=== PATIENT | female | born 1930 | race Caucasian/White ===

== ENCOUNTER → 2016-11-04 | Outpatient (CLI) | payer OTHER ==
[~2016-11-04] MED LIST: CALCIUM PO; DYZ PO; GLC5 PO; GLC500 PO; LISI-725 PO; PANT40TA PO; POTA10CA28 PO; PRED1SUS3 OPR; SIMV10TA2 PO; VIT D PO; ZINC PO
[2016-11-04 13:14] LABS: BLOOD UREA NITROGEN 21 mg/dl (7-18); BUN/CREATININE RATIO 17.7 (10-20); CARBON DIOXIDE 23 mmol/L (21-32); CHLORIDE 103 mmol/L (98-107); CHOLESTEROL 116 mg/dl (0-200); GLUCOSE 104 mg/dl (70-99); POTASSIUM 4.1 mmol/L (3.5-5.1); SODIUM 137 mmol/L (136-145); TRIGLYCERIDES 100 mg/dl (0-150); VERY LOW DENSITY LIPOPROT CALC 20 mg/dl
[2016-11-04 13:18] LABS: CHOLESTEROL/HDL RATIO 2.9; HDL CHOLESTEROL 40 mg/dl
[2016-11-04 13:42] LABS: ESTIMATED AVERAGE GLUCOSE 166 mg/dl; HA1C FLAG Normal (Normal)
== END | disposition home or self-care (01) ==
LOC: C.LABSPEC 12:33
PROVIDERS: ATTEND Internal Medicine
DX: E66.09 Other obesity due to excess calories (principal); E11.65 Type 2 diabetes mellitus with hyperglycemia; E78.5 Hyperlipidemia, unspecified; I10 Essential (primary) hypertension

== ENCOUNTER → 2017-03-02 | Outpatient (CLI) | payer OTHER ==
[2017-03-02 13:38] LABS: ESTIMATED AVERAGE GLUCOSE 160 mg/dl; HA1C FLAG Normal (Normal)
[2017-03-02 13:48] LABS: BLOOD UREA NITROGEN 25 mg/dl (7-18); CARBON DIOXIDE 22 mmol/L (21-32); CHLORIDE 104 mmol/L (98-107); CHOLESTEROL 119 mg/dl (0-200); GLUCOSE 97 mg/dl (70-99); POTASSIUM 4.1 mmol/L (3.5-5.1); SODIUM 138 mmol/L (136-145); TRIGLYCERIDES 84 mg/dl (0-150); VERY LOW DENSITY LIPOPROT CALC 17 mg/dl
[2017-03-02 13:49] LABS: CALCIUM 8.2 mg/dl (8.5-10.1); CHOLESTEROL/HDL RATIO 2.4; HDL CHOLESTEROL 50 mg/dl
== END | disposition home or self-care (01) ==
LOC: C.LABSPEC 12:11
PROVIDERS: ATTEND Internal Medicine
DX: E78.5 Hyperlipidemia, unspecified (principal); I10 Essential (primary) hypertension; E11.65 Type 2 diabetes mellitus with hyperglycemia

== ENCOUNTER → 2017-07-06 | Outpatient (CLI) | payer OTHER ==
[2017-07-06 13:32] LABS: BLOOD UREA NITROGEN 19 mg/dl (7-18); BUN/CREATININE RATIO 16.1 (10-20); CALCIUM 8.1 mg/dl (8.5-10.1); CARBON DIOXIDE 26 mmol/L (21-32); CHLORIDE 102 mmol/L (98-107); CHOLESTEROL 110 mg/dl (0-200); GLUCOSE 83 mg/dl (70-99); POTASSIUM 4.3 mmol/L (3.5-5.1); SODIUM 136 mmol/L (136-145)
[2017-07-06 13:35] LABS: CHOLESTEROL/HDL RATIO 2.3; HDL CHOLESTEROL 48 mg/dl; TRIGLYCERIDES 72 mg/dl (0-150); VERY LOW DENSITY LIPOPROT CALC 14 mg/dl
[2017-07-06 13:36] LABS: ESTIMATED AVERAGE GLUCOSE 151 mg/dl; HA1C FLAG Normal (Normal)
== END | disposition home or self-care (01) ==
LOC: C.LABSPEC 12:12
PROVIDERS: ATTEND Internal Medicine
DX: Z00.00 Encounter for general adult medical examination without abnormal findings (principal); E78.5 Hyperlipidemia, unspecified; I10 Essential (primary) hypertension; E11.65 Type 2 diabetes mellitus with hyperglycemia

== ENCOUNTER → 2017-07-08 | Outpatient (CLI) | payer OTHER ==
[2017-07-08 13:53] LABS: RATIO 68.3 mcg/mg (0-30.0)
== END | disposition home or self-care (01) ==
LOC: C.LABSPEC 12:36
PROVIDERS: ATTEND Internal Medicine
DX: E11.9 Type 2 diabetes mellitus without complications (principal); Z12.4 Encounter for screening for malignant neoplasm of cervix

== ENCOUNTER → 2017-07-08 | Outpatient (CLI) | payer OTHER | END | disposition home or self-care (01) | LOC: C.PAPS 12:45 | PROVIDERS: ATTEND Internal Medicine | DX: Z12.4 Encounter for screening for malignant neoplasm of cervix (principal) ==

== ENCOUNTER → 2017-07-11 | Outpatient (CLI) | payer OTHER | END | disposition home or self-care (01) | LOC: C.LABSPEC 12:02 | PROVIDERS: ATTEND Internal Medicine | DX: Z12.11 Encounter for screening for malignant neoplasm of colon (principal) ==

== ENCOUNTER → 2017-11-10 | Outpatient (CLI) | payer OTHER ==
[2017-11-10 14:02] LABS: HEMOGLOBIN A1C 7.1 % (4.5-5.6)
[2017-11-10 14:19] LABS: BLOOD UREA NITROGEN 16 mg/dl (7-18); CALCIUM 7.5 mg/dl (8.5-10.1); CARBON DIOXIDE 25 mmol/L (21-32); CHOLESTEROL 117 mg/dl (0-200); CREATININE 1.26 mg/dl (0.60-1.20); GLUCOSE 142 mg/dl (70-99); POTASSIUM 3.9 mmol/L (3.5-5.1); SODIUM 132 mmol/L (136-145)
[2017-11-10 14:24] LABS: LDL CHOLESTEROL (DIRECT) 62 mg/dl
== END | disposition home or self-care (01) ==
LOC: C.LABSPEC 12:43
PROVIDERS: ATTEND Internal Medicine
DX: E11.9 Type 2 diabetes mellitus without complications (principal); I10 Essential (primary) hypertension; E78.5 Hyperlipidemia, unspecified

== ENCOUNTER 2019-09-08 10:49 | Observation (INO) ==
[2019-09-08] MEDS ORDERED: ONDANSETRON INJ 2 MG/ML 2 ML VIAL IV STA ×2 (11:08→11:55)
[2019-09-08] MEDS ORDERED: ONDANSETRON INJ 2 MG/ML 2 ML VIAL ONE (11:08)
[2019-09-08] MEDS ORDERED: FAMOTIDINE 20MG/5ML IV PUSH IV STA (11:10)
[2019-09-08 11:35] LABS: Basophils # (auto) 0.02 K/uL (0-0.2); Basophils % (auto) 0.3 %; Eosinophils % (auto) 3.9 %; Hematocrit (blood only) 28.8 % (37-47); Hemoglobin 10.1 g/dL (12.0-16.0); Immature Granulocytes # (auto) 0.11 K/uL (0.00-0.02); Immature Granulocytes % (auto) 1.4 %; Lymphocytes # (auto) 2.25 K/uL (1.2-3.4); Lymphocytes % (auto) 29.5 %; Mean Corpuscular Hemoglobin 38.4 pg (25-34); Mean Corpuscular Hgb Conc 35.1 g/dL (32-36); Mean Corpuscular Volume 109.5 fL (80-100); Mean Platelet Volume 10.2 fL (7.4-10.4); Monocytes # (auto) 0.79 K/uL (0.11-0.59); Monocytes % (auto) 10.3 %; Neutrophils # (auto) 4.17 K/uL (1.4-6.5); Neutrophils % (auto) 54.6 %; Nucleated RBC # (auto) 0.02 K/uL (0-0); Nucleated RBC % (auto) 0.2 %; Platelet Count 356 K/uL (130-400); RDW Coefficient of Variation 14.1 % (11.5-14.5); RDW Standard Deviation 55.7 fL (36.4-46.3); Red Blood Count 2.63 M/uL (4.2-5.4); White Blood Count 7.64 K/uL (4.8-10.8)
[2019-09-08] MEDS ORDERED: PROMETHAZINE HCL 6.25 MG in SODIUM CHLORIDE 0.9% 50 ML IV STA (11:55)
[2019-09-08] MEDS ORDERED: SODIUM CHLORIDE 0.9% 1000ML 500 ML IV ONE (11:55)
[2019-09-08] MEDS ORDERED: PROMETHAZINE 12.5 MG/50.5 ML NSS IV ONE (11:58)
[2019-09-08 11:59] LABS: Alanine Aminotransferase 15 U/L (12-78); Albumin Level 3.4 gm/dl (3.4-5.0); Alkaline Phosphatase 73 U/L (45-117); Aspartate Aminotransferase 20 U/L (15-37); BUN Creatinine Ratio 11.7 (10-20); Bilirubin,Total 0.4 mg/dl (0.2-1); Blood Urea Nitrogen 15 mg/dl (7-18); Calcium 7.7 mg/dl (8.5-10.1); Carbon Dioxide 17 mmol/L (21-32); Chloride 105 mmol/L (98-107); Creatinine Clr Calc Pharmacy 29.9 ml/min; Est GFR (African American) 41.9; Est GFR (Non-African American) 36.2; Globulin 3.5 gm/dl (2.5-4.0); Glucose 170 mg/dl (70-99); Magnesium 2.9 mg/dl (1.8-2.4); Potassium 3.6 mmol/L (3.5-5.1); Sodium 134 mmol/L (136-145); Total Protein 6.9 gm/dl (6.4-8.2); Troponin I < 0.015 ng/ml (0-0.045)
--- NOTE | 2019-09-08 13:06 | XRay Report ---
XR abdomen 2V w PA chest CLINICAL HISTORY: 89 years-old Female presenting with vomiting. TECHNIQUE: PA view of the chest and supine and upright views of the abdomen were obtained. COMPARISON: 06/06/2012. FINDINGS: Atherosclerosis of aortic arch. Cardiac silhouette enlarged. No focal opacity. No large effusion or p neumothorax. Nonobstructive bowel gas pattern. Scattered gaseous distention of small and large bowel. Possible bow el wall thickening in small bowel loops in the left midabdomen and ascending colon to a mild degree. No gross pneumoperitoneum. Allowing for bowel gas and stool, no calcifications to suggest nephrolithiasis. Degenerative changes of the spine. Osteopenia suspected. IMPRESSION: 1. Cardiomegaly. No other convincing evidence of acute cardiopulmonary disease. 2. Mild small and large bowel wall thickening may be present raising concern for enterocolitis. Electronically signed by: Lenny Cook M.D. 09/08/2019 1:05 PM
[2019-09-08 13:22] LABS: Appearance Urine Clear (Clear); Bacteria Urine Automated 1+ (Negative); Bilirubin Urine Negative (Negative); Blood Urine Negative (Negative); Color Urine Yellow; Epithelial Cell Urine Auto 0-5 /lpf (0-5); Glucose Urine UA Negative (Negative); Ketones Urine Negative (Negative); Leukocyte Esterase Urine 1+ (Negative); Nitrite Urine Negative (Negative); Protein Urine 1+ (Negative); RBC Urine Automated 0-4 /hpf (0-4); Specific Gravity Urine 1.012 (1.000-1.030); Urobilinogen Urine Negative (Negative); pH Urine 6.5 (4.5-7.5)
[2019-09-08] MEDS ORDERED: cefTRIAXone SODIUM 1,000 MG/50 ML BAG IV STA (14:26)
--- NOTE | 2019-09-08 14:26 | Emergency Department Note ---
Entered by Kennedi Funez acting as a scribe for History of Present Illness General Chief complaint: Syncope Time Seen by Provider: 09/08/19 11:02 Source: patient and RN notes reviewed History of Present Illness Onset (ago): minute(s) (prior to arrival) Location: head Pain Consistency: + other (episode) Quality: + other (syncope) Associated symptoms: + diaphoresis, + nausea/vomiting and + other (+pale; - urinary symptoms; +hallucinations; -abdominal pain) The patient is an 89 year old female, with past medical history of diabetes, who presents to the Emergency Room with complaints of an episode of syncope that occurred at outpatient [facility] at [facility], according to the RN. The RN states the patient received 4 grams of magnesium at [facility] yesterday and was supposed to receive 4 more grams this morning. However, the RN notes that during the patients last gram of magnesium today, the patient became very pale, started sweating, and then started vomiting. After this, the RN states the patient passed out and had a brief unresponsive spell before coming back to. The patient was brought to the ED after this episode, and the RN states the patients sugar was 200 at 1040. The RN states the patients vitals are stable. The RN also no tanya the patient is alert and oriented currently, and the patients only complaint currently is nausea. The patient states that her breaking out in sweats is typically an indicator for her that her sugar levels are irregular. The patient believes her syncopal episode is a result of the magnesium. The patient states she experienced hallucinations last night that she also attributes to the magnesium medication. The patient states she does not know specifically why she is receiving magnesium, but she notes she was told to receive magnesium by her PCP after getting blood work done. The patient denies urinary symptoms or abdominal pain. Home Medications Home Medications Medication Instructions Recorded Confirmed Type glipizide 5 mg PO BID #0 06/21/11 09/08/19 History lisinopril 20 mg PO QAM #0 06/21/11 09/08/19 History metformin 1,000 mg PO BID #0 06/21/11 09/08/19 History potassium chloride 10 meq PO BID #0 06/21/11 09/08/19 History simvastatin 10 mg PO QPM #0 06/21/11 09/08/19 History triamterene-hydrochlorothiazid 1 cap PO QAM #0 06/21/11 09/08/19 History pantoprazole 40 mg PO QAM #30 tab 02/05/15 09/08/19 History calcium carbonate [Calcium 600] 600 mg PO BID 09/07/19 09/08/19 History vit C-vit S-aosrpk-lwpu-lutein 1 cap PO BID 09/07/19 09/08/19 History [PreserVision Lutein] calcitriol 0.25 mcg PO BID 09/08/19 09/08/19 History famotidine 20 mg PO BID 09/08/19 09/08/19 History Allergies Allergy/AdvReac Type Severity Reaction Status Date / Time pneumococcal vaccine Allergy Unknown . Verified 09/08/19 11:45 levofloxacin AdvReac Mild UPSET Verified 09/08/19 11:45 STOMACH Past Med/Surg History Medical History Diabetes (Acute) Diabetes HTN (hypertension) Hypomagnesemia (Acute) Surgical History H/O oophorectomy (Acute) right side per patient History of appendectomy (Acute) History of tonsillectomy (Acute) Social History Preferred Language: Hebrew Communication Ability: Effective Leasing Assistant Required: No Beliefs That Will Affect Care: None Current Living Situation: Alone Feels Safe at Home: Yes Smoking Status: Never smoker Hx Alcohol Use: No Hx Substance Use: No Review of Systems See HPI for pertinent positives & negatives. and A total of 10 systems reviewed and were otherwise negative Physical Exam Vital Signs Vital Signs - 24 hr 09/08/19 10:54 09/08/19 10:58 09/08/19 11:00 Temperature Temperature Source Pulse Rate 85 88 87 Pulse Rate from SpO2 Sensor 87 87 84 Respiratory Rate 23 25 H 20 Respiratory Depth Blood Pressure 197/96 H 185/81 H Blood Pressure Mean 150 117 Pulse Oximetry 98 97 98 Oxygen Delivery Method 09/08/19 11:01 09/08/19 11:15 09/08/19 11:16 Temperature Temperature Source Pulse Rate 89 92 H 84 Pulse Rate from SpO2 Sensor 88 85 78 Respiratory Rate 15 22 18 Respiratory Depth Blood Pressure 178/89 H Blood Pressure Mean 125 Pulse Oximetry 98 95 96 Oxygen Delivery Method 09/08/19 11:29 09/08/19 11:30 09/08/19 11:31 Temperature 36.7 C Temperature Source Oral Pulse Rate 84 86 76 Pulse Rate from SpO2 Sensor 82 76 Respiratory Rate 17 24 29 H Respiratory Depth Normal Blood Pressure 178/99 H 147/80 H Blood Pressure Mean 125 117 Pulse Oximetry 97 94 94 Oxygen Delivery Method Room Air 09/08/19 11:45 09/08/19 11:46 09/08/19 11:52 Temperature Temperature Source Pulse Rate 64 71 62 Pulse Rate from SpO2 Sensor 68 66 58 L Respiratory Rate 21 22 24 Respiratory Depth Blood Pressure 108/54 L 56/32 L Blood Pressure Mean 68 36 Pulse Oximetry 95 95 94 Oxygen Delivery Method 09/08/19 11:54 09/08/19 12:00 09/08/19 12:01 Temperature Temperature Source Pulse Rate 98 H 79 70 Pulse Rate from SpO2 Sensor 95 H 82 69 Respiratory Rate 24 24 23 Respiratory Depth Blood Pressure 86/48 L 159/79 H Blood Pressure Mean 64 115 Pulse Oximetry 96 97 97 Oxygen Delivery Method Room Air Room Air 09/08/19 12:15 09/08/19 12:16 09/08/19 12:30 Temperature Temperature Source Pulse Rate 73 82 82 Pulse Rate from SpO2 Sensor 75 81 79 Respiratory Rate 29 H 26 H 22 Respiratory Depth Blood Pressure 165/71 H 165/85 H Blood Pressure Mean 91 104 Pulse Oximetry 96 98 89 L Oxygen Delivery Method 09/08/19 12:31 09/08/19 13:06 09/08/19 13:08 Temperature Temperature Source Pulse Rate 82 97 H 75 Pulse Rate from SpO2 Sensor 83 78 Respiratory Rate 20 9 L 26 H Respiratory Depth Blood Pressure 186/91 H Blood Pressure Mean 102 Pulse Oximetry 97 99 Oxygen Delivery Method 09/08/19 13:09 09/08/19 13:15 09/08/19 13:16 Temperature Temperature Source Pulse Rate 70 76 79 Pulse Rate from SpO2 Sensor 68 76 77 Respiratory Rate 18 23 18 Respiratory Depth Blood Pressure 165/68 H Blood Pressure Mean 114 Pulse Oximetry 99 98 98 Oxygen Delivery Method 09/08/19 13:30 09/08/19 13:31 09/08/19 13:45 Temperature Temperature Source Pulse Rate 80 85 84 Pulse Rate from SpO2 Sensor 80 84 87 Respiratory Rate 22 30 H 26 H Respiratory Depth Blood Pressure 166/81 H 180/92 H Blood Pressure Mean 101 130 Pulse Oximetry 98 98 99 Oxygen Delivery Method 09/08/19 13:46 09/08/19 14:00 09/08/19 14:01 Temperature Temperature Source Pulse Rate 91 H 85 86 Pulse Rate from SpO2 Sensor 85 85 87 Respiratory Rate 19 21 24 Respiratory Depth Blood Pressure 180/79 H Blood Pressure Mean 100 Pulse Oximetry 98 97 96 Oxygen Delivery Method 09/08/19 14:15 09/08/19 14:16 Temperature Temperature Source Pulse Rate 85 89 Pulse Rate from SpO2 Sensor 87 90 Respiratory Rate 16 21 Respiratory Depth Blood Pressure 178/101 H Blood Pressure Mean 126 Pulse Oximetry 97 97 Oxygen Delivery Method GENERAL: Patient is in moderate distress and dry heaving. HEENT: No acute trauma, normocephalic atraumatic, mucous membranes moist, no nasal congestion, no scleral icterus. NECK: No stridor, no adenopathy, no meningismus, trachea is midline. LUNGS: Clear to auscultation bilaterally, no wheeze, no rhonchi, breath sounds equal. HEART: Without murmurs gallops or rubs, regular rate and rhythm. ABDOMEN: Soft, nontender, bowel sounds positive, no hernias, no peritonitis. EXTREMITIES: No cyanosis or edema, full range of motion of all the joints withou t pain or difficulty, no signs for acute trauma. NEUROLOGIC: Oriented x 3, no acute motor or sensory deficits, no focal weakness. SKIN: No rash, no jaundice, no diaphoresis. Course Course 1103: Past medical records reviewed. The patient was evaluated in room C5. A complete history and physical exam was performed. 1155: According to the RN, the patient is vomiting, and the patient's blood pressure has dropped. 1228: I discussed the patient's case with Dr. Jarvis-PCP. Dr. Jarvis wanted to check up on his patient as he was made aware of her syncope episode. 1332: I updated the patient on her case, and the patient is agreeable to stay for further management in the hospital. 1353: I reviewed the patient's case with Dr. Hernandez-Hospitalist [facility]. Dr. Hernandez will evaluate the patient for further management. Consultations Consultation #1: I discussed the patient's case with Dr. Jarvis-PCP. Dr. Jarvis wanted to check up on his patient as he was made aware of her syncope episode. Time: 12:28 Consultation #2: I reviewed the patient's case with Dr. Hernandez-Hospitalist [facility]. Dr. Hernandez will evaluate the patient for further management. Time: 13:53 Administered Medications Discontinued Medications Famotidine (Pepcid 20mg Iv Push) 20 mg IV ONE STA Stop: 09/08/19 11:11 Last Admin: 09/08/19 11:14 Dose: 20 mg Documented by: [id number] Sodium Chloride (Nss 1000ml) 500 mls @ 999 mls/hr IV .Q31M ONE Stop: 09/08/19 12:25 Last Infusion: 09/08/19 12:34 Dose: 0 mls/hr Documented by: [id number] Admin: 09/08/19 12:02 Dose: 999 mls/hr Documented by: [id number] Promethazine HCl 6.25 mg/ (Sodium Chloride) 50.25 mls @ 201 mls/hr IV NOW STA Stop: 09/08/19 12:09 Last Infusion: 09/08/19 12:24 Dose: 0 mls/hr Documented by: [id number] Admin: 09/08/19 12:02 Dose: 201 mls/hr Documented by: [id number] Ceftriaxone Sodium (Rocephin) 1,000 mg in 50 mls @ 100 mls/hr IV NOW STA Stop: 09/08/19 14:55 Last Infusion: 09/08/19 15:17 Dose: 0 mls/hr Documented by: [id number] Admin: 09/08/19 14:38 Dose: 100 mls/hr Documented by: [id number] Ondansetron HCl (Zofran) Confirm Administered Dose 4 mg .ROUTE .STK-MED ONE Stop: 09/08/19 11:09 Last Admin: 09/08/19 11:14 Dose: Not Given Documented by: [id number] Ondansetron HCl (Zofran) 4 mg IV NOW STA Stop: 09/08/19 11:09 Last Admin: 09/08/19 11:11 Dose: 4 mg Documented by: [id number] Ondansetron HCl (Zofran) 4 mg IV NOW STA Stop: 09/08/19 11:56 Last Admin: 09/08/19 12:02 Dose: 4 mg Documented by: [id number] Promethazine HCl (Phenergan) Confirm Administered Dose 12.5 mg IV .STLoopcam-MED ONE Stop: 09/08/19 11:59 Last Admin: 09/08/19 12:02 Dose: Not Given Documented by: [id number] Medical Decision Making Differential Diagnosis Differential diagnoses include medication reaction, bowel obstruction, myocardial infarction, dysrhythmia, electrolyte imbalance, viral illness, UTI, amongst others were considered. Medical Records Attestation: I reviewed the patient's medical records. Home Medications Current Medication List: was personally reviewed by me Laboratory Data Attestation: I reviewed the patient's lab results. Result diagrams: 09/08/19 11:20 09/08/19 11:20 Lab Results 09/08/19 09/08/19 09/08/19 Range/Units 11:20 11:20 13:10 WBC 7.64 (4.8-10.8) K/uL RBC 2.63 L (4.2-5.4) M/uL Hgb 10.1 L (12.0-16.0) g/dL Hct 28.8 L (37-47) % MCV 109.5 H (80-100) fL MCH 38.4 H (25-34) pg MCHC 35.1 (32-36) g/dL RDW Std Deviation 55.7 H (36.4-46.3) fL RDW Coeff of Jennifer 14.1 (11.5-14.5) % Plt Count 356 (130-400) K/uL MPV 10.2 (7.4-10.4) fL Immature Gran % (Auto) 1.4 % Neut % (Auto) 54.6 % Lymph % (Auto) 29.5 % [place] % (Auto) 10.3 % Eos % (Auto) 3.9 % Baso % (Auto) 0.3 % Immature Gran # (Auto) 0.11 H (0.00-0.02) K/uL Neut # (Auto) 4.17 (1.4-6.5) K/uL Lymph # (Auto) 2.25 (1.2-3.4) K/uL [place] # (Auto) 0.79 H (0.11-0.59) K/uL Eos # (Auto) 0.30 (0-0.5) K/uL Baso # (Auto) 0.02 (0-0.2) K/uL Absolute Nucleated RBC 0.02 H (0-0) K/uL Nucleated RBC % (auto) 0.2 % Sodium 134 L (136-145) mmol/L Potassium 3.6 (3.5-5.1) mmol/L Chloride 105 (98-107) mmol/L Carbon Dioxide 17 L (21-32) mmol/L Anion Gap 12.0 H (3-11) BUN 15 (7-18) mg/dl Creatinine 1.32 H (0.6-1.2) mg/dl Est Cr Clr Drug Dosing 29.9 ml/min Est GFR ( Amer) 41.9 Est GFR (Non-Af Amer) 36.2 BUN/Creatinine Ratio 11.7 (10-20) Glucose 170 H (70-99) mg/dl Calcium 7.7 L (8.5-10.1) mg/dl Magnesium 2.9 H (1.8-2.4) mg/dl Total Bilirubin 0.4 (0.2-1) mg/dl AST 20 (15-37) U/L ALT 15 (12-78) U/L Alkaline Phosphatase 73 (45-117) U/L Troponin I < 0.015 (0-0.045) ng/ml Total Protein 6.9 (6.4-8.2) gm/dl Albumin 3.4 (3.4-5.0) gm/dl Globulin 3.5 (2.5-4.0) gm/dl Albumin/Globulin Ratio 1.0 (0.9-2) Urine Color Yellow Urine Appearance Clear (Clear) Urine pH 6.5 (4.5-7.5) Ur Specific [place] 1.012 (1.000-1.030) Urine Protein 1+ H (Negative) Urine Glucose (UA) Negative (Negative) Urine Ketones Negative (Negative) Urine Blood Negative (Negative) Urine Nitrite Negative (Negative) Urine Bilirubin Negative (Negative) Urine Urobilinogen Negative (Negative) Ur Leukocyte Esterase 1+ H (Negative) Urine WBC (Auto) 10-30 H (0-5) /hpf Urine RBC (Auto) 0-4 (0-4) /hpf U Hyaline Cast (Auto) 1-5 (0-5) /lpf U Epithel Cells (Auto) 0-5 (0-5) /lpf Urine Bacteria (Auto) 1+ H (Negative) Imaging Data Radiologist's Impression: Radiology results as stated below per my review and the radiologist's interpretation: XR abdomen 2V w PA chest CLINICAL HISTORY: 89 years-old Female presenting with vomiting. TECHNIQUE: PA view of the chest and supine and upright views of the abdomen were obtained. COMPARISON: 06/06/2012. FINDINGS: Atherosclerosis of aortic arch. Cardiac silhouette enlarged. No focal opacity. No large effusion or pneumothorax. Nonobstructive bowel gas pattern. Scattered gaseous distention of small and large bowel. Possible bowel wall thickening in small bowel loops in the left midabdomen and ascending colon to a mild degree. No gross pneumoperitoneum. Allowing for bowel gas and stool, no calcifications to suggest nephrolithiasis. Degenerative changes of the spine. Osteopenia suspected. IMPRESSION: 1. Cardiomegaly. No other convincing evidence of acute cardiopulmonary disease. 2. Mild small and large bowel wall thickening may be present raising concern for enterocolitis. Electronically signed by: Lenny Cook M.D. 09/08/2019 1:05 PM ECG Data Attestation: I personally reviewed and interpreted this ECG as follows: Indication: + syncope Rate (beats per minute): 87 Rhythm: + sinus rhythm ECG Findings: + PACs and + Other (LVH; QTC 469) Blood Pressure Blood Pressure Findings: Elevated blood pressure Blood Pressure Disposition: further management by hospitalist [facility] Narrative There is no leukocytosis. The patient is somewhat anemic, this is baseline looking back at previous testing. Renal panel testing does show some renal insufficiency with a creatinine of 1.32. CO2 slightly low at 17. Magnesium was actually high at 2.9. Calcium low at 7.7. There was no liver enzyme elevation. EKG showed a sinus rhythm, no acute ischemia. Cardiac enzyme testing x1 was not consistent with acute cardiac injury. Abdominal series does not show pneumonia or bowel obstruction. Urinalysis shows potential infection with some white cells seen. Urine culture is pending. The patient was given a dose of IV ceftriaxone for antibiotic coverage. She received IV Pepcid, IV Zofran. She required a second dose of IV Zofran for persistent nausea and vomiting. She was also given a dose of IV Phenergan. She received a bolus of IV saline when her blood pressure was noted to be low. The patient has had improvement with the above medications. Her blood pressure is now adequate. Her nausea is controlled. She seems much more comfortable. Given the multiple bouts of vomiting, given the syncope and near syncope, given the transient hypotension, I do think a hospital stay is warranted. The cause for her presentation is unclear but may be related to the magnesium administration. I did speak with the patient and case management. The on-call hospitalist was consulted. Impression & Plan Syncope, Vomiting, Medication reaction, Transient hypotension Discharge Plan Visit Data *Final* Discharge Date/Time: 09/08/19 15:52 Chief Complaint: Syncope ED Provider: Charli Swanson Discharge Problem: Syncope, Vomiting, Medication reaction, Transient hypotension Patient Disposition: Admitted As Inpatient Discharge Instructions Interventions: ED Discharge Assessment Last Done: 09/08/19 15:52 Discharge Problem: Syncope Qualifiers: Syncope type: unspecified Qualified Code(s): R55 - Syncope and collapse Vomiting Qualifiers: Vomiting type: unspecified Vomiting Intractability: unspecified Nausea presence: unspecified Qualified Code(s): R11.10 - Vomiting, unspecified Medication reaction Qualifiers: Encounter type: initial encounter Qualified Code(s): T50.905A - Adverse effect of unspecified drugs, medicaments and biological substances, initial encounter The scribe's documentation has been prepared under my direction and personally reviewed by me in its entirety. I confirm that the note above accurately reflects all work, treatment, procedures, and medical decision making performed by me.
--- NOTE | 2019-09-08 14:36 | History & Physical Report ---
Date of Service September 08, 2019 Assessment & Plan (1) Syncope: Monitor the patient on the telemetry floor. Present on Admission?: Yes (2) Vomiting: Zofran as needed. Add IV Pepcid. Present on Admission?: Yes (3) Medication reaction: Possible reaction to IV magnesium. Present on Admission?: Yes (4) Transient hypotension: Hypotension improved. Continue with gentle IV fluids. Present on Admission?: Yes (5) HTN (hypertension): Hold diuretics secondary to history of hypokalemia and hypomagnesemia. Add IV hydralazine PRN basis for uncontrolled hypertension. (6) Diabetes: Continue home meds. Add sliding scale insulin. Present on Admission?: Yes (7) DVT prophylaxis: Add subcu heparin History of Present Illness Primary Care Provider: Khris Jarvis MD The patient is 89 year old female, with past medical history of diabetes, who presents to the Emergency Room with complaints of an episode of syncope that o ccurred at outpatient [facility] at [facility], according to the RN. The RN states the patient received 4 grams of magnesium at [facility]U yesterday and was supposed to receive 4 more grams this morning. However, the RN notes that during the patients last gram of receiving magnesium today, the patient became very pale, started sweating, and then started vomiting. After this, the RN states the patient passed out and had a brief unresponsive spell before coming back to. The patient was brought to the ED after this episode, and the RN states the patients sugar was 200 at 1040. The RN states the patients vitals are stable. The RN also notes the patient is alert and oriented currently, and the patients only complaint currently is nausea. The patient states that her breaking out in sweats is typically an indicator for her that her sugar levels are irregular. The patient believes her syncope episode is a result of the magnesium. The patient states she experienced hallucinations last night that she also attri butes to the magnesium medication. The patient states she does not know specifically why she is receiving magnesium, but she notes she was told to receive magnesium by her PCP after getting blood work done. The patient denies urinary symptoms or abdominal pain. Currently at the time of my examination she is feeling better. She denies any dizziness or lightheadedness. Her hypotension has resolved and blood pressure is running high. No chest pain. No shortness of breath. No seizures. No ingrid l bladder incontinence. No diarrhea. Allergies Allergy/AdvReac Type Severity Reaction Status Date / Time pneumococcal vaccine Allergy Unknown . Verified 09/08/19 11:45 levofloxacin AdvReac Mild UPSET Verified 09/08/19 11:45 STOMACH Home Medications Home Medications Medication Instructions Recorded Confirmed Type glipizide 5 mg PO BID #0 06/21/11 09/08/19 History lisinopril 20 mg PO QAM #0 06/21/11 09/08/19 History metformin 1,000 mg PO BID #0 06/21/11 09/08/19 History potassium chloride 10 meq PO BID #0 06/21/11 09/08/19 History simvastatin 10 mg PO QPM #0 06/21/11 09/08/19 History triamterene-hydrochlorothiazid 1 cap PO QAM #0 06/21/11 09/08/19 History pantoprazole 40 mg PO QAM #30 tab 02/05/15 09/08/19 History calcium carbonate [Calcium 600] 600 mg PO BID 09/07/19 09/08/19 History vit C-vit H-qsqsjg-vrvp-lutein 1 cap PO BID 09/07/19 09/08/19 History [PreserVision Lutein] calcitriol 0.25 mcg PO BID 09/08/19 09/08/19 History famotidine 20 mg PO BID 09/08/19 09/08/19 History Past Med/Surg History Medical History Diabetes (Acute) Diabetes HTN (hypertension) Hypomagnesemia (Acute) Surgical History H/O oophorectomy (Acute) right side per patient History of appendectomy (Acute) History of tonsillectomy (Acute) Social History Feels Safe at Home: Yes Smoking Status: Never smoker Review of Systems Review of Systems: All systems reviewed & are unremarkable except as noted in HPI & below Physical Exam Physical Exam: GENERAL : No acute distress EYES: No icterus, gaze conjugate NOSE: No evidence of epistaxis MOUTH: No lesions or candidiasis, mucosa moist NECK: Supple LUNGS: CTA B/L, no wheezes, rales or rhonchi HEART: Regular, rate controlled ABDOMEN: Soft, NT, ND, BS Present EXTREMITIES: No LE edema, pedal pulses intact NEURO: A&OX3 Results & Data Vital Signs (Past 12 Hours) Vital Signs Temp Pulse Resp BP Pulse Ox 09/08/19 13:08 75 26 H 186/91 H 99 09/08/19 13:06 97 H 9 L 09/08/19 12:31 82 20 97 09/08/19 12:30 82 22 165/85 H 89 L 09/08/19 12:16 82 26 H 98 09/08/19 12:15 73 29 H 165/71 H 96 09/08/19 12:01 70 23 97 09/08/19 12:00 79 24 159/79 H 97 09/08/19 11:54 98 H 24 86/48 L 96 09/08/19 11:52 62 24 56/32 L 94 09/08/19 11:46 71 22 95 09/08/19 11:45 64 21 108/54 L 95 09/08/19 11:31 76 29 H 94 09/08/19 11:30 86 24 147/80 H 94 09/08/19 11:29 98.1 F 84 17 178/99 H 97 09/08/19 11:16 84 18 96 09/08/19 11:15 92 H 22 178/89 H 95 09/08/19 11:01 89 15 98 09/08/19 11:00 87 20 185/81 H 98 09/08/19 10:58 88 25 H 97 09/08/19 10:54 85 23 197/96 H 98 Laboratory Results 09/08/19 11:20 09/08/19 11:20 Diagnostic Findings XR abdomen 2V w PA chest CLINICAL HISTORY: 89 years-old Female presenting with vomiting. TECHNIQUE: PA view of the chest and supine and upright views of the abdomen were obtained. COMPARISON: 06/06/2012. FINDINGS: Atherosclerosis of aortic arch. Cardiac silhouette enlarged. No focal opacity. No large effusion or pneumothorax. Nonobstructive bowel gas pattern. Scattered gaseous distention of small and large bowel. Possible bowel wall thickening in small bowel loops in the left midabdomen and ascending colon to a mild degree. No gross pneumoperitoneum. Allowing for bowel gas and stool, no calcifications to suggest nephrolithiasis. Degenerative changes of the spine. Osteopenia suspected. IMPRESSION: 1. Cardiomegaly. No other convincing evidence of acute cardiopulmonary disease. 2. Mild small and large bowel wall thickening may be present raising concern for enterocolitis. Code Status & VTE Plan Code Status full code VTE Prophylaxis Plan VTE Prophylaxis will be ordered: Yes PG Care Time/CCT Total # of Minutes Spent Total Time Spent with Patient: Total time spent is greater than 50% in coordination of care (as documented) at patient's floor/unit and/or counseling patient: (1) Syncope Syncope type: unspecified Qualified Code(s): R55 - Syncope and collapse (2) Vomiting Nausea presence: unspecified Vomiting Intractability: unspecified Vomiting type: unspecified Qualified Code(s): R11.10 - Vomiting, unspecified (3) Medication reaction Encounter type: initial encounter Qualified Code(s): T50.905A - Adverse effect of unspecified drugs, medicaments and biological substances, initial encounter
[2019-09-08] MEDS ORDERED: FAMOTIDINE 20 MG in SYRINGE 3 ML IV SCH (16:10)
[2019-09-08] MEDS ORDERED: MAGNESIUM HYDROXIDE SUSP 30 ML UDC PO PRN (16:10)
[2019-09-08] MEDS ORDERED: DEXTROSE 50% 50 ML SYRINGE IV PRN (16:10)
[2019-09-08] MEDS ORDERED: GLUCOSE 40% GEL 15 GM TUBE PO PRN (16:10)
[2019-09-08] MEDS ORDERED: ONDANSETRON INJ 2 MG/ML 2 ML VIAL IV PRN (16:10)
[2019-09-08] MEDS ORDERED: GLUCAGON FOR INJ 1 MG VIAL SQ PRN (16:10)
[2019-09-08] MEDS ORDERED: GLUCOSE 10 TABS/TUBE PO PRN (16:10)
[2019-09-08] MEDS ORDERED: CARBOHYDRATES FOR HYPOGLYCEMIA PO PRN (16:10)
[2019-09-08] MEDS ORDERED: HydrALAZINE HCL 20 MG/ML VIAL IV PRN (16:10)
[2019-09-08] MEDS ORDERED: ACETAMINOPHEN 325 MG TAB PO PRN (16:10)
[2019-09-08] MEDS: glipiZIDE 5 MG TAB PO SCH (18:00)
[2019-09-08] MEDS: SODIUM CHLORIDE 0.9% 1000ML 1,000 ML IV SCH (18:00)
[2019-09-08] MEDS: METFORMIN HCL 500 MG TAB PO SCH (18:26)
[2019-09-08] MEDS ORDERED: SIMVASTATIN 10 MG TAB PO SCH (21:00)
[2019-09-08] MEDS: HEPARIN SOD 5,000 UNIT/0.5 ML VIAL SQ SCH (21:23)
[2019-09-08] MEDS: POTASSIUM CHLORIDE 10 MEQ TABCR PO SCH (21:24)
[2019-09-08] MEDS: CALCIUM CARBONATE 1250MG TAB PO SCH (21:24)
[2019-09-08] MEDS: FAMOTIDINE 20 MG TAB PO SCH (21:24)
[2019-09-08] MEDS: CALCITRIOL 0.25 MCG CAPSULE PO SCH (21:24)
[2019-09-09 06:14] LABS: Hematocrit (blood only) 26.1 % (37-47); Mean Corpuscular Hemoglobin 38.5 pg (25-34); Mean Corpuscular Hgb Conc 34.5 g/dL (32-36); Mean Corpuscular Volume 111.5 fL (80-100); Mean Platelet Volume 10.1 fL (7.4-10.4); Platelet Count 302 K/uL (130-400); RDW Coefficient of Variation 14.3 % (11.5-14.5); RDW Standard Deviation 56.4 fL (36.4-46.3); Red Blood Count 2.34 M/uL (4.2-5.4); White Blood Count 5.22 K/uL (4.8-10.8)
[2019-09-09] MEDS: SODIUM CHLORIDE 0.9% 1000ML 1,000 ML IV SCH (06:23)
[2019-09-09] MEDS: HEPARIN SOD 5,000 UNIT/0.5 ML VIAL SQ SCH (06:23)
[2019-09-09 06:53] LABS: Albumin Level 2.7 gm/dl (3.4-5.0); BUN Creatinine Ratio 11.2 (10-20); Bilirubin Direct 0.1 mg/dl (0-0.2); Calcium 7.8 mg/dl (8.5-10.1); Creatinine Clr Calc Pharmacy 30.4 ml/min; Est GFR (African American) 42.7; Est GFR (Non-African American) 36.9; Magnesium 2.1 mg/dl (1.8-2.4)
[2019-09-09 06:58] LABS: Albumin Globulin Ratio 0.9 (0.9-2); Bilirubin,Total 0.3 mg/dl (0.2-1); Total Protein 5.7 gm/dl (6.4-8.2)
[2019-09-09 07:54] LABS: Estimated Average Glucose 157 mg/dl; Hemoglobin A1C 7.1 % (4.5-5.6)
[2019-09-09] MEDS: METFORMIN HCL 500 MG TAB PO SCH (08:20)
[2019-09-09] MEDS: glipiZIDE 5 MG TAB PO SCH (08:20)
[2019-09-09] MEDS: CALCIUM CARBONATE 1250MG TAB PO SCH (08:21)
[2019-09-09] MEDS: CALCITRIOL 0.25 MCG CAPSULE PO SCH (08:21)
[2019-09-09] MEDS: POTASSIUM CHLORIDE 10 MEQ TABCR PO SCH (08:22)
[2019-09-09] MEDS: FAMOTIDINE 20 MG TAB PO SCH (08:22)
[2019-09-09] MEDS ORDERED: LISINOPRIL 20 MG TAB PO SCH (09:00)
[2019-09-09] MEDS ORDERED: CEROVITE ADV FORMULA TAB PO SCH (09:00)
[2019-09-09] MEDS ORDERED: CYANOCOBALAMIN 1000 MCG/ML VIAL IM ONE (11:15)
--- NOTE | 2019-09-09 11:20 | Discharge Summary ---
Date of Service September 09, 2019 Admission HPI Per Admitting Provider The patient is 89 year old female, with past medical history of diabetes, who presents to the Emergency Room with complaints of an episode of syncope that occurred at outpatient [facility] at [facility], according to the RN. The RN states the patient received 4 grams of magnesium at MTU yesterday and was supposed to receive 4 more grams this morning. However, the RN notes that during the patients last gram of receiving magnesium today, the patient became very pale, started sweating, and then started vomiting. After this, the RN states the patient passed out and had a brief unresponsive spell before coming back to. The patient was brought to the ED after this episode, and the RN states the patients sugar was 200 at 1040. The RN states the patients vitals are stable. The RN also notes the patient is alert and oriented currently, and the patients only complaint currently is nausea. The patient states that her breaking out in sweats is typically an indicator for her that her sugar levels are irregular. The patient believes her syncope episode is a result of the magnesium. The patient states she experienced hallucinations last night that she also attributes to the magnesium medication. The patient states she does not know specifically why she is receiving magnesium, but she notes she was told to receive magnesium by her PCP after getting blood work done. The patient denies urinary symptoms or abdominal pain. Currently at the time of my examination she is feeling better. She denies any dizziness or lightheadedness. Her hypotension has resolved and blood pressure is running high. No chest pain. No shortness of breath. No seizures. No bowel bladder incontinence. No diarrhea. Principal Diagnosis Syncope, hypotension Discharge Exam Constitutional WD/WN, vitals as above Eyes PERRL, conjunctivae normal, anicteric sclerae ENMT external ear and nose normal, oropharynx normal Neck trachea midline, no thyromegaly Respiratory normal respiratory effort, lungs clear to auscultation Cardiovascular RRR, no murmur, no edema Chest (Breasts) Chest: normal inspection of chest Gastrointestinal (Abdomen) normal bowel sounds, soft, nontender, no hepatosplenomegaly Musculoskeletal Extremities: extremities normal to inspection; no cyanosis and no clubbing Skin no rashes, warm and dry Neurologic moves all extremities and awake; no focal motor deficits Psychiatric A+Ox3, euthymic affect Lymphatic no lymphedema Discharge Data Allergies Allergy/AdvReac Type Severity Reaction Status Date / Time pneumococcal vaccine Allergy Unknown . Verified 09/08/19 11:45 levofloxacin AdvReac Mild UPSET Verified 09/08/19 11:45 STOMACH Consultations None Procedures Performed ECHO Ordered Studies CXR/Abdomen xray Hospital Course (1) Syncope: Passed out after receiving IV Magnesium in the MTU and was noted to have severe hypotension. May have been related to Magnesium infusion. Tele monitoring without arrhythmias, ECHO with preserved EF, mild MR, mild LVH, otherwise normal. ECG on admission with NSR, PACs, LVH Pt was feeling very well on the day of discharge. BPs were actually quite high and she was started on amlodipine for this. She was asymptomatic. Denies nausea, headache, chest pain, SOB, lightheadedness. No focal weakness or neuro symptoms or signs. Stable for dc to home with close PCP follow up (2) Vomiting: Secondary to hypotension -now resolved after receiving IVFs, IV Pepcid, ZOfran (3) Medication reaction: Possible reaction to IV magnesium. Would use with caution in future (4) Transient hypotension: Hypotension improved with gentle IV fluids, now hypertensive Secondary to IV Magnesium infusion (5) HTN (hypertension): Had significant HTN here after IVFs given for hypotension -dc triamterene/HCTZ due to hypomagnesemia and hypokalemia -continue lisinopril 20mg po daily -added amlodipine 5mg po daily and titrate up as outpt as needed BPs 170s systolic but asymptomatic prior to discharge -close f/u with PCP recommended (6) Diabetes: Continue home meds (7) Vitamin B12 deficiency: B12 level only 94 on recent labs Was given IM injection B12 in PCP office recently -gave another 1000mcg B12 IM x 1 here -f/u as outpt Accounts for her macrocytic anemia (8) Hypomagnesemia: as above, could be secondary to HCTZ-now discontinued -Magnesium level here now normal after replacement (9) GERD (gastroesophageal reflux disease): continue PPI but could be contributing to hypomagnesemia (10) CKD (chronic kidney disease) stage 3, GFR 30-59 ml/min: Inker Machine baseline 1.3-is at baseline here -avoid nephrotoxins -renally dose meds -consider discontinuing PPI as outpt (11) Macrocytic anemia: secondary to severe B12 deficiency, B12 level 94 as above Hgb 9.0 on day of discharge -f/u PCP (12) DVT prophylaxis: subcu heparin Dispo-stable for dc to home Total Time Total Time Spent Total Time Spent (In Minutes): 35 min Total Time Includes: Examination of the Patient, Discharge Planning and Medication Reconciliation Discharge Plan Discharge Items Patient Disposition: Home - Self-Care Reason For Visit: SYNCOPE Discharge Diagnosis: Syncope Condition on Discharge: Fair Activity: Resume your previous activity Non-emergency contact: Primary Care Provider Call non-emergency contact if: you have any medication questions and your symptoms worsen Follow-up/Referrals: Khris Jarvis MD [Primary Care Provider] - (Please call for a follow up appointment within 1 week. ) Diet: Heart Healthy Addtl Attending Provider Instructions: You were admitted after you passed out after receiving IV magnesium infusion. This may have been due to low blood pressure from the magnesium. Your magnesium level is now normal. Your Triamterene/Hydrochlorathiazide pill may have been contributing to your low magnesium levels. Please DO NOT take that pill until you see Dr. Riya Bojorquez again. Your blood pressure was quite high and you were started on a new blood pressure pill called amlodipine. Please take this once daily. You were given another shot of vitamin B12 while you were here. Also, you should stop your potassium tablets for now unless Dr. Riya Bojorquez wants you to restart them. Pending Studies at Discharge: No Stand-Alone Forms: My [facility] Medications and DC Order Prescriptions: New amlodipine 5 mg tablet 5 mg PO DAILY Qty: 30 RF: 0 Continued lisinopril 20 mg Tablet 20 mg PO QAM Qty: 0 RF: 0 simvastatin 10 mg Tablet 10 mg PO QPM Qty: 0 RF: 0 metformin 1,000 mg Tablet 1,000 mg PO BID Qty: 0 RF: 0 glipizide 5 mg Tablet 5 mg PO BID Qty: 0 RF: 0 pantoprazole [address] For Susp In Packet 40 mg PO QAM Qty: 30 RF: 0 calcium carbonate [Calcium 600] 600 mg calcium (1,500 mg) Tablet 600 mg PO BID RF: 0 PreserVision Lutein 226 mg-200 unit -5 mg-0.8 mg Capsule 1 cap PO BID RF: 0 famotidine 20 mg tablet 20 mg PO BID RF: 0 calcitriol 0.25 mcg capsule 0.25 mcg PO BID RF: 0 Discontinued potassium chloride 10 mEq Capsule, Extended Release 10 meq PO BID Qty: 0 RF: 0 triamterene-hydrochlorothiazid 37.5-25 mg Capsule 1 cap PO QAM Qty: 0 RF: 0 Discharge Orders: Discharge Order (Routine); Ordered 09/09/19 Ordered By: Isadora Souza Admission Data Admit Date/Time: 09/08/19 14:18 Attending Provider: Isadora Souza Admit Provider: Manny Hernandez Primary Care Provider: Khris Jarvis Other Providers: Manny Hernandez Other Interventions: Discharge Summary Assessment (RN) Last Done: 09/09/19 12:48 DC Date/Time DO NOT enter until pt leaves facility: 09/09/19 13:14
[2019-09-09] MEDS ORDERED: AMLODIPINE BESYLATE 5 MG TAB PO ONE (11:34)
[2019-09-09] MEDS ORDERED: cefTRIAXone SODIUM 1,000 MG/50 ML BAG IV SCH (14:00)
== END 2019-09-09 13:14 | disposition home or self-care (01) ==
LOC: ED 10:49 → 2S 10:49 → SUATTDRO 14:18 → 2S 15:52